=== PATIENT | female | born 1995 | race American Indian/Alaskan Native ===

== ENCOUNTER 2018-12-08 16:20 | Emergency (ER) | payer MEDICAID ==
--- NOTE | 2018-12-08 16:34 | Emergency Department Report ---
Blank Doc - Documentation Documentation: This is a 23-year-old female that presents with nausea vomiting diarrhea. This initial assessment/diagnostic orders/clinical plan/treatment(s) is/are subject to change based on patient's health status, clinical progression and re- assessment by fellow clinical providers in the ED. Further treatment and workup at subsequent clinical providers discretion. Patient/guardians urged not to elope from the ED as their condition may be serious if not clinically assessed and managed. Initial orders include: 1- Patient sent to [facility] for further evaluation and treatment 2- labs 3- UA
[2018-12-08 17:35] LABS: Basophils % (Auto) 0.5 % (0.0-1.8); Eosinophils # (Auto) 0.1 K/mm3 (0.0-0.4); Eosinophils % (Auto) 1.6 % (0.0-4.3); Hematocrit 38.3 % (30.3-42.9); Hemoglobin 13.1 gm/dl (10.1-14.3); Lymphocytes # (Auto) 1.7 K/mm3 (1.2-5.4); Lymphocytes % (Auto) 24.2 % (13.4-35.0); Mean Corpuscular HGB Conc 34 % (30-34); Mean Corpuscular Volume 81 fl (79-97); Monocytes # (Auto) 0.6 K/mm3 (0.0-0.8); Monocytes % (Auto) 8.2 % (0.0-7.3); Platelet Count 241 K/mm3 (140-440); Red Blood Count 4.75 M/mm3 (3.65-5.03); Red Cell Distribution Width 14.2 % (13.2-15.2)
[2018-12-08 17:46] LABS: Bacteria,Urine 1+ /HPF (Negative); Bilirubin,Urine NEG (Negative); Blood,Urine SM (Negative); Color,Urine Yellow (Yellow); Protein,Urine <15 mg/dL mg/dL (Negative)
[2018-12-08 18:00] LABS: Alanine Aminotransferase 32 units/L (7-56); Albumin 4.4 g/dL (3.9-5); BUN/Creatinine Ratio 7; Blood Urea Nitrogen 4 mg/dL (7-17); Calcium 9.9 mg/dL (8.4-10.2); Hemolysis Index 4
[2018-12-08] MEDS ORDERED: NACL 0.9% 1000 ML 1,000 ML IV ONE (19:51)
[2018-12-08] MEDS ORDERED: ZOFRAN IV ONE (19:51)
--- NOTE | 2018-12-08 19:51 | Emergency Department Report ---
Vomiting/Diarrhea - HPI Chief Complaint: Nausea/Vomiting/Diarrhea Stated Complaint: VOMIT/NAUSEA/POSS Time Seen by Provider: 12/08/18 16:33 Pain Severity: Mild Symptoms: Yes Able to Tolerate Fluids, No Watery Diarrhea, No Bloody diarrhea, No Fever, No Recent Unusual Foods, No Recent Untreated Water, No Recent use of Antibiotics, No Family w/ Similar Symptoms, No Contacts w/ Similar Symptoms, No Rash, No Hematuria, No Recent URI Symptoms Other History: 23 Y OLD COMES TO ER CO ABD PAIN AND THINKING SHE IS PREG. NO HOME PREG TEST. G3. LMP 6.8. DID NOT SEE OBGYN. AMBULATORY. PLAYING ON PHONE DURING EXAM. REQUESTING ULTRASOUND. ED Review of Systems ROS: Stated complaint: VOMIT/NAUSEA/POSS Other details as noted in HPI Comment: All other systems reviewed and negative ED Past Medical Hx - Past Medical History Hx Asthma: Yes Additional medical history: Anxiety, preeclampsia x 2 pregnacies - Surgical History Past Surgical History?: No - Family History Family history: no significant - Social History Smoking Status: Never Smoker Substance Use Type: None - Medications Home Medications: Home Medications Medication Instructions Recorded Confirmed Last Taken Type Azithromycin [Zithromax Z-JONE] 250 mg PO DAILY #6 tablet 04/26/16 Unknown Rx Cetirizine HCl [ZyrTEC] 10 mg PO DAILY #30 capsule 04/26/16 Unknown Rx Fluticasone [Flonase] 1 spray NS QDAY #1 bottle 04/26/16 Unknown Rx Ibuprofen [Motrin 800 MG tab] 800 mg PO Q8HR PRN #30 tablet 04/26/16 Unknown Rx Ondansetron [Zofran Odt] 4 mg PO Q8HR PRN #10 tab.rapdis 12/08/18 Unknown Rx Promethazine HCl [Phenergan SUPPOS] 25 mg RC Q8H PRN 10 Days supp.rect 12/08/18 Unknown Rx Vomiting Diarrhea Exam - Exam General: Vital signs noted. No distress. Alert and acting appropriately. HEENT: No Pharyngeal Erythema Neck: No Adenopathy Lungs: Yes Clear Lung Sounds, Yes Good Air Exchange Heart exam: Regular: Yes, Murmur: No Abdomen: Tenderness: No, Peritoneal Signs: No, Distention: No, Hyperactive Bowel sounds: No Skin exam: Rash: No, Edema: No Neurologic: Alert and oriented, no deficits. Musculoskeletal: Unremarkable. ED Medical Decision Making - Lab Data Result diagrams: 12/08/18 17:17 12/08/18 17:17 - Radiology Data Radiology results: report reviewed, image reviewed - Medical Decision Making Lab Results 12/08/18 12/08/18 12/08/18 Range/Units 16:55 17:17 17:17 WBC 6.9 (4.5-11.0) K/mm3 RBC 4.75 (3.65-5.03) M/mm3 Hgb 13.1 (10.1-14.3) gm/dl Hct 38.3 (30.3-42.9) % MCV 81 (79-97) fl MCH 28 (28-32) pg MCHC 34 (30-34) % RDW 14.2 (13.2-15.2) % Plt Count 241 (140-440) K/mm3 Lymph % (Auto) 24.2 (13.4-35.0) % [place] % (Auto) 8.2 H (0.0-7.3) % Eos % (Auto) 1.6 (0.0-4.3) % Baso % (Auto) 0.5 (0.0-1.8) % Lymph # 1.7 (1.2-5.4) K/mm3 [place] # 0.6 (0.0-0.8) K/mm3 Eos # 0.1 (0.0-0.4) K/mm3 Baso # 0.0 (0.0-0.1) K/mm3 Seg Neutrophils % 65.5 (40.0-70.0) % Seg Neutrophils # 4.5 (1.8-7.7) K/mm3 Sodium 138 (137-145) mmol/L Potassium 3.9 (3.6-5.0) mmol/L Chloride 102.6 (98-107) mmol/L Carbon Dioxide 21 L (22-30) mmol/L Anion Gap 18 mmol/L BUN 4 L (7-17) mg/dL Creatinine 0.6 L (0.7-1.2) mg/dL Estimated GFR > 60 ml/min BUN/Creatinine Ratio 7 % Glucose 94 (65-100) mg/dL Calcium 9.9 (8.4-10.2) mg/dL Total Bilirubin 0.60 (0.1-1.2) mg/dL AST 24 (5-40) units/L ALT 32 (7-56) units/L Alkaline Phosphatase 71 (35-129) units/L Total Protein 7.6 (6.3-8.2) g/dL Albumin 4.4 (3.9-5) g/dL Albumin/Globulin Ratio 1.4 % Lipase 16 (13-60) units/L HCG, Qual (Negative) HCG, Quant (0-4) mIU/mL Urine Color Yellow (Yellow) Urine Turbidity Clear (Clear) Urine pH 6.0 (5.0-7.0) Ur Specific [place] 1.015 (1.003-1.030) Urine Protein <15 mg/dl (Negative) mg/dL Urine Glucose (UA) Neg (Negative) mg/dL Urine Ketones 20 (Negative) mg/dL Urine Blood Sm (Negative) Urine Nitrite Neg (Negative) Urine Bilirubin Neg (Negative) Urine Urobilinogen 4.0 (<2.0) mg/dL Ur Leukocyte Esterase Sm (Negative) Urine WBC (Auto) 7.0 H (0.0-6.0) /HPF Urine RBC (Auto) 3.0 (0.0-6.0) /HPF U Epithel Cells (Auto) 5.0 (0-13.0) /HPF Urine Bacteria (Auto) 1+ (Negative) /HPF Urine Yeast (Budding) Few /HPF 12/08/18 12/08/18 Range/Units 17:17 20:19 WBC (4.5-11.0) K/mm3 RBC (3.65-5.03) M/mm3 Hgb (10.1-14.3) gm/dl Hct (30.3-42.9) % MCV (79-97) fl MCH (28-32) pg MCHC (30-34) % RDW (13.2-15.2) % Plt Count (140-440) K/mm3 Lymph % (Auto) (13.4-35.0) % [place] % (Auto) (0.0-7.3) % Eos % (Auto) (0.0-4.3) % Baso % (Auto) (0.0-1.8) % Lymph # (1.2-5.4) K/mm3 [place] # (0.0-0.8) K/mm3 Eos # (0.0-0.4) K/mm3 Baso # (0.0-0.1) K/mm3 Seg Neutrophils % (40.0-70.0) % Seg Neutrophils # (1.8-7.7) K/mm3 Sodium (137-145) mmol/L Potassium (3.6-5.0) mmol/L Chloride (98-107) mmol/L Carbon Dioxide (22-30) mmol/L Anion Gap mmol/L BUN (7-17) mg/dL Creatinine (0.7-1.2) mg/dL Estimated GFR ml/min BUN/Creatinine Ratio % Glucose (65-100) mg/dL Calcium (8.4-10.2) mg/dL Total Bilirubin (0.1-1.2) mg/dL AST (5-40) units/L ALT (7-56) units/L Alkaline Phosphatase (35-129) units/L Total Protein (6.3-8.2) g/dL Albumin (3.9-5) g/dL Albumin/Globulin Ratio % Lipase (13-60) units/L HCG, Qual Positive (Negative) HCG, Quant 44045 H (0-4) mIU/mL Urine Color (Yellow) Urine Turbidity (Clear) Urine pH (5.0-7.0) Ur Specific [place] (1.003-1.030) Urine Protein (Negative) mg/dL Urine Glucose (UA) (Negative) mg/dL Urine Ketones (Negative) mg/dL Urine Blood (Negative) Urine Nitrite (Negative) Urine Bilirubin (Negative) Urine Urobilinogen (<2.0) mg/dL Ur Leukocyte Esterase (Negative) Urine WBC (Auto) (0.0-6.0) /HPF Urine RBC (Auto) (0.0-6.0) /HPF U Epithel Cells (Auto) (0-13.0) /HPF Urine Bacteria (Auto) (Negative) /HPF Urine Yeast (Budding) /HPF Vital Signs 12/08/18 21:10 Temperature 99.1 F Pulse Rate 75 Respiratory 18 Rate Blood Pressure 118/64 [Left] O2 Sat by Pulse 100 Oximetry PREG POS NO VAG BLEED USUAL DISCHARGE ABD SOFT NON TENDER NO CVA TENDERNESS VSS US NOTED DC HOME WITH OBGYN FOLLOW UP. - Differential Diagnosis RO Critical care attestation.: If time is entered above; I have spent that time in minutes in the direct care of this critically ill patient, excluding procedure time. ED Disposition Clinical Impression: Disposition: DC-01 TO HOME OR SELFCARE Is pt being admited?: No Does the pt Need Aspirin: No Condition: Stable Instructions: Morning Sickness (ED), (ED) Additional Instructions: vitamin follow up with tobias saucedo hydrate well avoid drugs or alcohol Prescriptions: Promethazine HCl [Phenergan SUPPOS] 25 mg RC Q8H PRN 10 Days supp.rect PRN Reason: Nausea Ondansetron [Zofran Odt] 4 mg PO Q8HR PRN #10 tab.rapdis PRN Reason: Vomiting Referrals: NEERU WOOD MD [Primary Care Provider] - 3-5 Days ANDIE SONI MD [Staff Physician] - 3-5 Days Time of Disposition: 22:46
[2018-12-08 21:11] VITALS: BP 118/64
[2018-12-08] MEDS ORDERED: PHENERGAN PR ONE (22:54)
--- NOTE | 2018-12-08 23:08 | Ultrasound Report ---
ULTRASOUND OBSTETRIC INDICATION: Abdominal pain. Clinical gestational age of 6 weeks, 2 days. TECHNIQUE: Transabdominal and Transvaginal. COMPARISON: None available. FINDINGS: GESTATIONAL SACS: Well-defined oval shape and intrauterine in location. YOLK SACS: No significant abnormality. EMBRYOS/FETUSES: No significant abnormality. - [place]-Rump Length Twin A = 0.69 cm = 6 weeks, 4 day(s). - Heart Rate Twin A = 120 beats per minute. - [place]-Rump Length Twin B = 0.66 cm = 6 weeks, 4 day(s). - Heart Rate Twin B = 121 beats per minute. ADNEXA: A 2.2 cm complex hypoechoic structure is seen within the right ovary, possibly representing a n evolving corpus luteum. No additional significant abnormality. FREE FLUID: None. ADDITIONAL FINDINGS: None. IMPRESSION: 1. Living twin intrauterine with estimated sonographic age of 6 weeks, 4 day(s). 2. No acute sonographic abnormality of the pelvis. Signer Name: Bay Warren MD Signed: 12/08/2018 11:03 PM Workstation Name: [id number]
--- NOTE | 2018-12-08 23:08 | Ultrasound Report ---
ULTRASOUND OBSTETRIC INDICATION: Abdominal pain. Clinical gestational age of 6 weeks, 2 days. TECHNIQUE: Transabdominal and Transvaginal. COMPARISON: None available. FINDINGS: GESTATIONAL SACS: Well-defined oval shape and intrauterine in location. YOLK SACS: No significant abnormality. EMBRYOS/FETUSES: No significant abnormality. - [place]-Rump Length Twin A = 0.69 cm = 6 weeks, 4 day(s). - Heart Rate Twin A = 120 beats per minute. - [place]-Rump Length Twin B = 0.66 cm = 6 weeks, 4 day(s). - Heart Rate Twin B = 121 beats per minute. ADNEXA: A 2.2 cm complex hypoechoic structure is seen within the right ovary, possibly representing a n evolving corpus luteum. No additional significant abnormality. FREE FLUID: None. ADDITIONAL FINDINGS: None. IMPRESSION: 1. Living twin intrauterine with estimated sonographic age of 6 weeks, 4 day(s). 2. No acute sonographic abnormality of the pelvis. Signer Name: Bay Warren MD Signed: 12/08/2018 11:03 PM Workstation Name: [id number]
--- NOTE | 2018-12-11 07:29 | Ultrasound Report ---
Please see the report for accession number [id number], pelvic ultrasound performed concomitantly on 0 12/08/2018. Signer Name: Bay Warren MD Signed: 12/11/2018 7:25 AM Workstation Name: [email or web address]
== END 2018-12-08 23:10 | disposition home or self-care (01) ==
LOC: ED 16:20
DX: O21.9 Vomiting of pregnancy, unspecified (principal); O26.891 Other specified pregnancy related conditions, first trimester; R11.0 Nausea; O99.511 Diseases of the respiratory system complicating pregnancy, first trimester; J45.909 Unspecified asthma, uncomplicated; O99.341 Other mental disorders complicating pregnancy, first trimester; F41.9 Anxiety disorder, unspecified; Z79.899 Other long term (current) drug therapy; Z3A.00 Weeks of gestation of pregnancy not specified
CPT/HCPCS: 36415; 76801; 76802; 76817; 80053; 81001; 83690; 84702; 84703; 85025; 96361; 96374; 99284; J2405; J7030

== ENCOUNTER 2020-09-06 15:43 | Emergency (ER) | payer MEDICAID ==
--- NOTE | 2020-09-06 15:49 | Event Note ---
ED Screening Note ED Screening Note: Patient is a 25-year-old -Monegas[place] female that comes to the ER complaining of right calf pain. She saw her doctor 3 days ago and they did blood work and EKGs and everything was fine. But they did nothing about her leg. She denies any trauma. She states it is a constant throbbing. Patient is on no medications and reports being otherwise healthy. On further exam and probing patient states that she did have a history of blood clots after having her . This initial assessment/diagnostic orders/clinical plan/treatment(s) is/are subject to change based on patients health status, clinical progression and re- assessment by fellow clinical providers in the ED. Further treatment and workup at subsequent clinical providers discretion. Patient/guardian urged not to elope from the ED as their condition may be serious if not clinically assessed and managed. Initial orders include: us ro dvt
--- NOTE | 2020-09-06 16:35 | Vascular Lab Report ---
VL venous duplex LE RT INDICATION / CLINICAL INFORMATION: calf pain ro dvt; hx dvt. TECHNIQUE: Duplex doppler imaging was performed using venous compression and other maneuvers. COMPARISON: None available. FINDINGS: No venous thrombosis is identified within the visualized extremity vasculature. ADDITIONAL FINDINGS: None. IMPRESSION: 1. No sonographic evidence for DVT in the visualized right lower extremity vasculature. Signer Name: Yunior Rose MD Signed: 09/06/2020 4:30 PM Workstation Name: [id number]
[2020-09-06] MEDS ORDERED: hydrOXYzine HCL 25 MG TAB PO ONE (17:31)
[2020-09-06 17:32] VITALS: BP 134/81
--- NOTE | 2020-09-06 17:40 | Emergency Department Report ---
ED General Adult HPI - General Chief complaint: Chest Pain Stated complaint: CHEST DISCOMFORT, RIGHT LEG PAIN Time Seen by Provider: 09/06/20 15:48 Source: patient Mode of arrival: Ambulatory Limitations: No Limitations - History of Present Illness Initial comments: Patient is a 25-year-old female who presents emergency room with complaints of right calf pain and anxiety. Patient has a history of anxiety but states it has worsened over the last month. She states that she has had the right calf pain for 3 days. She denies any fall or injury. She denies any leg swelling. She denies any recent travel, surgery, immobilization, hormone use. She has no past medical history of DVT or PE. Patient states that her anxiety has worsened over the last month and she has intermittent symptoms of chest pressure, shortness of breath, lightheadedness. Patient states that she went to [facility] 3 days ago and had lab work, EKG, chest x-ray which she states were all normal. She states that she was started on medication for GERD. Past medical history of preeclampsia during her , otherwise no history of hypertension. No allergies to medications. - Related Data Previous Rx's Medication Instructions Recorded Last Taken Type Azithromycin [Zithromax Z-JONE] 250 mg PO DAILY #6 tablet 04/26/16 Unknown Rx Cetirizine HCl [ZyrTEC] 10 mg PO DAILY #30 capsule 04/26/16 Unknown Rx Fluticasone [Flonase] 1 spray NS QDAY #1 bottle 04/26/16 Unknown Rx Ibuprofen [Motrin 800 MG tab] 800 mg PO Q8HR PRN #30 tablet 04/26/16 Unknown Rx Ondansetron [Zofran Odt] 4 mg PO Q8HR PRN #10 tab.rapdis 12/08/18 Unknown Rx Promethazine HCl [Phenergan SUPPOS] 25 mg RC Q8H PRN 10 Days supp.rect 12/08/18 Unknown Rx Allergies Allergy/AdvReac Type Severity Reaction Status Date / Time shellfish derived AdvReac Unknown Verified 09/06/20 15:50 ED Review of Systems ROS: Stated complaint: CHEST DISCOMFORT, RIGHT LEG PAIN Other details as noted in HPI Comment: All other systems reviewed and negative ED Past Medical Hx - Past Medical History Hx Asthma: Yes Additional medical history: Anxiety, preeclampsia x 2 pregnacies, blood clots post - Social History Smoking Status: Never Smoker Substance Use Type: None - Medications Home Medications: Home Medications Medication Instructions Recorded Confirmed Last Taken Type Azithromycin [Zithromax Z-JONE] 250 mg PO DAILY #6 tablet 04/26/16 Unknown Rx Cetirizine HCl [ZyrTEC] 10 mg PO DAILY #30 capsule 04/26/16 Unknown Rx Fluticasone [Flonase] 1 spray NS QDAY #1 bottle 04/26/16 Unknown Rx Ibuprofen [Motrin 800 MG tab] 800 mg PO Q8HR PRN #30 tablet 04/26/16 Unknown Rx Ondansetron [Zofran Odt] 4 mg PO Q8HR PRN #10 tab.rapdis 12/08/18 Unknown Rx Promethazine HCl [Phenergan SUPPOS] 25 mg RC Q8H PRN 10 Days supp.rect 12/08/18 Unknown Rx ED Physical Exam - General Limitations: No Limitations General appearance: alert, in no apparent distress - Head Head exam: Present: atraumatic, normocephalic - Eye Eye exam: Present: normal appearance - ENT ENT exam: Present: mucous membranes moist - Respiratory Respiratory exam: Present: normal lung sounds bilaterally. Absent: respiratory distress, wheezes, rales, rhonchi, stridor, chest wall tenderness, accessory muscle use, decreased breath sounds, prolonged expiratory - Cardiovascular Cardiovascular Exam: Present: regular rate, normal rhythm, normal heart sounds. Absent: systolic murmur, diastolic murmur, rubs, gallop - Extremities Exam Extremities exam: Present: normal inspection, full ROM, normal capillary refill, other (no calf ttp, no bony ttp of the RLE, no edema, neurovascularly intact). Absent: tenderness, pedal edema, joint swelling, calf tenderness - Neurological Exam Neurological exam: Present: alert, oriented X3 - Psychiatric Psychiatric exam: Present: normal affect, normal mood - Skin Skin exam: Present: warm, dry, intact ED Course Vital Signs 09/06/20 09/06/20 15:47 17:29 Temperature 98.1 F Pulse Rate 109 H 80 Respiratory 20 20 Rate Blood Pressure 182/122 134/81 O2 Sat by Pulse 100 100 Oximetry ED Medical Decision Making - Lab Data Vital Signs 09/06/20 09/06/20 15:47 17:29 Temperature 98.1 F Pulse Rate 109 H 80 Respiratory 20 20 Rate Blood Pressure 182/122 134/81 O2 Sat by Pulse 100 100 Oximetry - EKG Data EKG shows normal: sinus rhythm, axis, intervals, QRS complexes, ST-T waves Rate: normal - Radiology Data Radiology results: report reviewed Ordering Physician: MIGUEL AIKEN Date of Service: 09/06/20 Procedure(s): VL venous duplex LE RT Accession Number(s): [id number] cc: MIGUEL AIKEN VL venous duplex LE RT INDICATION / CLINICAL INFORMATION: calf pain ro dvt; hx dvt. TECHNIQUE: Duplex doppler imaging was performed using venous compression and other maneuvers. COMPARISON: None available. FINDINGS: No venous thrombosis is identified within the visualized extremity vasculature. ADDITIONAL FINDINGS: None. IMPRESSION: 1. No sonographic evidence for DVT in the visualized right lower extremity vasculature. Signer Name: Yunior Rose MD Signed: 09/06/2020 4:30 PM Workstation Name: [id number] Transcribed By: CS Dictated By: Yunior Rose MD Electronically Authenticated By: Yunior Rose MD Signed Date/Time: 09/06/201629 DD/ 29 TD/TT: - Medical Decision Making Patient is a 25-year-old female who presents emergency room with complaints of right calf pain and anxiety. Patient has a history of anxiety but states it has worsened over the last month. She states that she has had the right calf pain for 3 days. She denies any fall or injury. She denies any leg swelling. She denies any recent travel, surgery, immobilization, hormone use. She has no past medical history of DVT or PE. Patient states that her anxiety has worsened over the last month and she has intermittent symptoms of chest pressure, shortness of breath, lightheadedness. Patient states that she went to [facility] 3 days ago and had lab work, EKG, chest x-ray which she states were all normal. She states that she was started on medication for GERD. Past medical history of preeclampsia during her , otherwise no history of hypertension. No allergies to medications. Initial vitals with elevated heart rate and blood pressure which improved to normal upon repeat. No abnormality on physical exam as documented in chart. EKG is within normal limits. Doppler ultrasound ordered prior to my examination and shows no signs of DVT. Patient is low risk based on Wells criteria for PE, PE unlikely. Patient given hydroxyzine and symptoms improved. It appears patient symptoms are likely anxiety related. Patient be given primary care follow-up and information to the [facility]. Advised patient Please increase your water intake. Take a daily woman's vitamin [id number]. Please practice healthy coping mechanisms for your anxiety such as meditation, taking walks, watching videos, etc. Follow-up with the [facility] regarding your anxiety. Follow-up with your primary care doctor. Return to emergency room for new or worsening symptoms. Critical care attestation.: If time is entered above; I have spent that time in minutes in the direct care of this critically ill patient, excluding procedure time. ED Disposition Clinical Impression: Right calf pain, Anxiety Disposition: DC-01 TO HOME OR SELFCARE Is pt being admited?: No Does the pt Need Aspirin: No Condition: Stable Instructions: Managing Anxiety, Adult, Leg Cramps Additional Instructions: Please increase your water intake. Take a daily woman's vitamin [id number]. Please practice healthy coping mechanisms for your anxiety such as meditation, taking walks, watching videos, etc. Follow-up with the [facility] regarding your anxiety. Follow-up with your primary care doctor. Return to emergency room for new or worsening symptoms. Referrals: [facility] [Outside] - 2-3 Days your, primary care doctor [Other] - 2-3 Days Forms: Work/School Release Form(ED) Time of Disposition: 17:39 Print Language: INDONESIAN
--- NOTE | 2020-09-08 09:33 | Electrocardiograph Report ---
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
== END 2020-09-06 18:15 | disposition home or self-care (01) ==
LOC: ED 15:43
DX: F41.9 Anxiety disorder, unspecified (principal); M79.661 Pain in right lower leg; J45.909 Unspecified asthma, uncomplicated; Z79.899 Other long term (current) drug therapy; Z91.013 Allergy to seafood
CPT/HCPCS: 93005

== ENCOUNTER 2021-09-22 22:26 | Emergency (ER) | payer MEDICAID ==
[2021-09-23 02:32] LABS: Hematocrit 29.7 % (30.3-42.9); Hemoglobin 9.1 gm/dl (10.1-14.3); Mean Corpuscular HGB Conc 31 % (30-34); Platelet Count 378 K/mm3 (140-440); Red Blood Count 4.82 M/mm3 (3.65-5.03)
[2021-09-23 02:34] LABS: Bacteria,Urine 1+ /HPF (Negative); Bilirubin,Urine NEG (Negative); Blood,Urine LG (Negative); Color,Urine Yellow (Yellow); Mucus,Urine FEW /HPF; Protein,Urine <15 mg/dL mg/dL (Negative); Urobilinogen,Urine < 2.0 mg/dL (<2.0)
[2021-09-23 02:38] LABS: Mean Corpuscular Volume 62 fl (79-97)
[2021-09-23 02:44] LABS: Red Cell Distribution Width 21.1 % (13.2-15.2)
[2021-09-23 02:49] LABS: Alanine Aminotransferase 12 units/L (7-56); Albumin 4.6 g/dL (3.9-5); Blood Urea Nitrogen 7 mg/dL (7-17); Calcium 9.6 mg/dL (8.4-10.2); Hemolysis Index 1
[2021-09-23 03:16] LABS: BUN/Creatinine Ratio 10
[2021-09-23 03:20] VITALS: BP 126/73
--- NOTE | 2021-09-23 04:05 | XRay Report ---
CHEST 1 VIEW 09/23/2021 2:56 AM INDICATION / CLINICAL INFORMATION: CHEST PAIN. COMPARISON: 04/25/2016 FINDINGS: SUPPORT DEVICES: None. HEART / MEDIASTINUM: No significant abnormality. LUNGS / PLEURA: No significant pulmonary or pleural abnormality. No pneumothorax. ADDITIONAL FINDINGS: No significant additional findings. IMPRESSION: 1. No acute findings. Signer Name: Marco Felix DO Signed: 09/23/2021 4:00 AM Workstation Name: [id number]
[2021-09-23] MEDS ORDERED: KETOROLAC 30 MG/1 ML INJ IM ONE (04:15)
[2021-09-23] MEDS ORDERED: LIDOCAINE VISCOUS 2% 15 ML ORAL LIQD PO ONE (04:15)
[2021-09-23 04:25] LABS: Anisocytosis 1+; Basophils % (Manual) 0 % (0.0-1.8); Total Cells Counted 100
[2021-09-23 04:26] LABS: Platelet Estimate Consistent w Auto
--- NOTE | 2021-09-23 06:16 | Emergency Department Report ---
ED Chest Pain HPI - General Chief Complaint: Chest Pain Stated Complaint: CHEST WALL PAIN Source: patient, EMS Mode of arrival: Ambulatory Limitations: No Limitations - History of Present Illness Initial Comments: Patient is a 26-year-old -[place] female with a history of anxiety and asthma who presents to the ED with complaint of acute onset persistent diffuse chest pain that radiates to the mid posterior thoracic area intermittently for the last 5 days. Patient states that the pain is intermittent and worsens with activity, lifting or palpation of the chest wall and mid posterior thoracic area. Patient also complains of nasal and sinus congestion and frontal sinus pressure and was recently diagnosed with acute sinusitis and was prescribed for oral prednisone but she only took 2 days worth of medication and stopped because according to her the medicine was making her jittery. Patient also complains of painful ulcerated lesions in her lips, tongue and her throat with thick white discharge. Patient denies dizziness, syncope, fever, chills, cough, heavy lifting, nausea and vomiting and diarrhea, abdominal pain or fall and heavy lifting. MD Complaint: chest pain, other (Diffuse mid posterior thoracic pain; oral itchy painful ulceration) -: Sudden, days(s) (5) Onset: during exertion Pain Location: substernal, left chest, right chest Pain Radiation: back (Mid posterior thoracic area) Severity: moderate Severity scale (0 -10): 6 Quality: aching, sharp Consistency: intermittent Improves With: nothing Worsens With: exertion, palpation, movement re: denies: nausea, vomting, diaphoresis, dyspnea, sense of impending doom Other Symptoms: acid taste in mouth. denies: cough, fever, syncope, rash, leg swelling, palpitations, burping Treatments Prior to Arrival: none Aspirin use within the Past 7 Days: (0) No - Related Data On Oral Contraceptives: No Previous Rx's Medication Instructions Recorded Last Taken Type Azithromycin [Zithromax Z-JONE] 250 mg PO DAILY #6 tablet 04/26/16 Unknown Rx Cetirizine HCl [ZyrTEC] 10 mg PO DAILY #30 capsule 04/26/16 Unknown Rx Fluticasone [Flonase] 1 spray NS QDAY #1 bottle 04/26/16 Unknown Rx Ondansetron [Zofran Odt] 4 mg PO Q8HR PRN #10 tab.rapdis 12/08/18 Unknown Rx Promethazine HCl [Phenergan SUPPOS] 25 mg RC Q8H PRN 10 Days supp.rect 12/08/18 Unknown Rx Baclofen 20 mg PO Q12H PRN #24 tab 09/23/21 Unknown Rx Famotidine [Pepcid] 20 mg PO BID #60 tablet 09/23/21 Unknown Rx Ibuprofen [Motrin 800 MG tab] 800 mg PO Q8HR PRN #30 tablet 09/23/21 Unknown Rx Nystas/Diphen/Xyl Visc/Mylanta 15 ml PO Q8H PRN #450 ml 09/23/21 Unknown Rx [Magic Mouthwash] Allergies Allergy/AdvReac Type Severity Reaction Status Date / Time shellfish derived AdvReac Unknown Verified 09/06/20 15:50 Heart Score - HEART Score History: Slightly suspicious EKG: Normal Age: < 45 Risk factors: No known risk factors Troponin: < normal limit HEART Score: 0 - EKG Read Time Time EKG Completed: 04:59 EKG Read Time: 05:00 - Critical Actions Critical Actions: 0-3 pts:0.9-1.7%risk of adverse cardiac event.Candidate for discharge ED Review of Systems ROS: Stated complaint: CHEST WALL PAIN Other details as noted in HPI Constitutional: denies: chills, fever Eyes: denies: eye pain, eye discharge, vision change ENT: other (Painful oral ulcers). denies: ear pain, throat pain Respiratory: denies: cough, shortness of breath, wheezing Cardiovascular: chest pain (Diffuse chest pain). denies: palpitations Endocrine: no symptoms reported Gastrointestinal: denies: abdominal pain, nausea, vomiting, diarrhea Genitourinary: denies: urgency, dysuria, discharge Musculoskeletal: back pain (Mid posterior thoracic pain). denies: joint swelling, arthralgia Skin: denies: rash, lesions Neurological: denies: headache, weakness, paresthesias Psychiatric: denies: anxiety, depression Hematological/Lymphatic: denies: easy bleeding, easy bruising ED Past Medical Hx - Past Medical History Previous Medical History?: Yes Hx Asthma: Yes Additional medical history: Anxiety, preeclampsia x 2 pregnacies, blood clots post - Surgical History Past Surgical History?: No - Social History Smoking Status: Never Smoker Substance Use Type: None - Medications Home Medications: Home Medications Medication Instructions Recorded Confirmed Last Taken Type Azithromycin [Zithromax Z-JONE] 250 mg PO DAILY #6 tablet 04/26/16 Unknown Rx Cetirizine HCl [ZyrTEC] 10 mg PO DAILY #30 capsule 04/26/16 Unknown Rx Fluticasone [Flonase] 1 spray NS QDAY #1 bottle 04/26/16 Unknown Rx Ondansetron [Zofran Odt] 4 mg PO Q8HR PRN #10 tab.rapdis 12/08/18 Unknown Rx Promethazine HCl [Phenergan SUPPOS] 25 mg RC Q8H PRN 10 Days supp.rect 12/08/18 Unknown Rx Baclofen 20 mg PO Q12H PRN #24 tab 09/23/21 Unknown Rx Famotidine [Pepcid] 20 mg PO BID #60 tablet 09/23/21 Unknown Rx Ibuprofen [Motrin 800 MG tab] 800 mg PO Q8HR PRN #30 tablet 09/23/21 Unknown Rx Nystas/Diphen/Xyl Visc/Mylanta 15 ml PO Q8H PRN #450 ml 09/23/21 Unknown Rx [Magic Mouthwash] ED Physical Exam - General Limitations: No Limitations General appearance: alert, in no apparent distress - Head Head exam: Present: atraumatic, normocephalic, normal inspection - Eye Eye exam: Present: normal appearance, PERRL, EOMI Pupils: Present: normal accommodation - ENT ENT exam: Present: normal exam, mucous membranes moist, TM's normal bilaterally, other (Mild erythematous ulcerated intraoral lesions on the tongue, on the inner lips and on the throat with white discharge) - Neck Neck exam: Present: normal inspection, full ROM. Absent: tenderness - Respiratory Respiratory exam: Present: normal lung sounds bilaterally. Absent: respiratory distress, wheezes, rales, chest wall tenderness, accessory muscle use, prolonged expiratory - Cardiovascular Cardiovascular Exam: Present: regular rate, normal rhythm, normal heart sounds. Absent: systolic murmur, diastolic murmur, rubs, gallop - GI/Abdominal GI/Abdominal exam: Present: soft, normal bowel sounds. Absent: tenderness, guarding, rebound, hyperactive bowel sounds, hypoactive bowel sounds, mass - Extremities Exam Extremities exam: Present: normal inspection, full ROM, normal capillary refill. Absent: tenderness, pedal edema, joint swelling, calf tenderness - Back Exam Back exam: Present: normal inspection, full ROM. Absent: tenderness, CVA tenderness (R), CVA tenderness (L), muscle spasm, paraspinal tenderness, vertebral tenderness - Neurological Exam Neurological exam: Present: alert, oriented X3, CN II-XII intact, normal gait, reflexes normal - Psychiatric Psychiatric exam: Present: normal affect, normal mood - Skin Skin exam: Present: warm, dry, intact, normal color. Absent: rash ED Course Vital Signs 09/22/21 09/23/21 09/23/21 23:05 03:19 05:37 Temperature 97.7 F Pulse Rate 82 80 Respiratory 18 16 Rate Blood Pressure 122/58 126/73 [Right] O2 Sat by Pulse 99 98 98 Oximetry KAVON score - Kavon Score Age > 65: (0) No Aspirin use within the Past 7 Days: (0) No 3 or more CAD Risk Factors: (0) No 2 or more Angina events in past 24 hrs: (0) No Known CAD with more than 50% Stenosis: (0) No Elevated Cardiac Markers: (0) No ST Deviation Greater than 0.5mm: (0) No KAVON Score: 0 ED Medical Decision Making - Lab Data Result diagrams: 09/23/21 01:32 09/23/21 01:32 - EKG Data EKG shows normal: sinus rhythm Rate: normal - EKG Data Interpretation: normal EKG 09/23/21 06:21 The EKG shows normal sinus rhythm with a ventricular rate of [address] or T wave abnormalities. - Radiology Data Radiology results: report reviewed, image reviewed [address] [address] XRay Report Signed Patient: ANUPAMA PARKER MR# : [id number] : 1995 Acct:[id number] Age/Sex: 26 / F ADM Date: 09/22/21 Loc: ED Attending Dr: Ordering Physician: KETAN JIMENEZ Date of Service: 09/23/21 Procedure(s): XR chest 1V ap Accession Number(s): [id number] cc: KETAN JIMENEZ Fluoro Time In Minutes: CHEST 1 VIEW 09/23/2021 2:56 AM INDICATION / CLINICAL INFORMATION: CHEST PAIN. COMPARISON: 04/25/2016 FINDINGS: SUPPORT DEVICES: None. HEART / MEDIASTINUM: No significant abnormality. LUNGS / PLEURA: No significant pulmonary or pleural abnormality. No pneumothorax. ADDITIONAL FINDINGS: No significant additional findings. IMPRESSION: 1. No acute findings. Signer Name: Marco Felix DO Signed: 09/23/2021 4:00 AM Workstation Name: [id number] Transcribed By: FLOR Dictated By: MARCO FELIX DO Electronically Authenticated By: MARCO FELIX DO Signed Date/Time: 09/23/21399 DD/ 8 TD/TT: - Medical Decision Making This is a 26-year-old -[place] female with a history of anxiety and asthma who presents to the ED with complaint of acute onset persistent diffuse chest pain that radiates to the mid posterior thoracic area intermittently for the last 5 days. Patient states that the pain is intermittent and worsens with activity, lifting or palpation of the chest wall and mid posterior thoracic area. Patient also complains of nasal and sinus congestion and frontal sinus pressure and was recently diagnosed with acute sinusitis and was prescribed for oral prednisone but she only took 2 days worth of medication and stopped because according to her the medicine was making her jittery. Patient also complains of painful ulcerated lesions in her lips, tongue and her throat with thick white discharge. In the ED, patient is alert and oriented x3 and is not in any distress. EKG shows normal sinus rhythm with a ventricular rate of [address] or T wave abnormalities. Chest x-ray showed no acute cardiopulmonary abnormalities or pneumonitis. Lab test results were reviewed and are all nonactionable except for chronic microcytic iron deficiency anemia as evidenced with H&H of 9.1 and 29.7 with MCV of 62. Patient was treated for pain in the ED. Patient heart score is 0 and patient is PERC negative per Wells criteria. Based on the history and physical exam findings as well as lab test results, the patient was discharged home on anti-inflammatory pain medications and also given antifungal oral medications to swish and swallow at home due to suspected Riddhi pharyngitis. Patient was discharged home and advised to follow-up with her primary care physician in 7 to 10 days for reevaluation or return to the ED immediately if symptoms get worse. - Differential Diagnosis Riddhi pharyngitis; oral ulcers; ACS; PE; pneumonia; muscle strain; anxiet Critical care attestation.: If time is entered above; I have spent that time in minutes in the direct care of this critically ill patient, excluding procedure time. ED Disposition Clinical Impression: Nonspecific chest pain, Acute costochondritis, Riddhi laryngitis, Acute upper respiratory infection, Strain of muscle and tendon of back wall of thorax, initial encounter GERD (gastroesophageal reflux disease) Qualifiers: Esophagitis presence: esophagitis presence not specified Qualified Code(s): K21.9 - Gastro-esophageal reflux disease without esophagitis Disposition: HOME / SELF CARE / HOMELESS Is pt being admited?: No Does the pt Need Aspirin: No Condition: Stable Instructions: Costochondritis, [id number], Nonspecific Chest Pain, Adult, Asut-lj-Ssvy, Muscle Strain, Ahcb-dj-Beqv, Chest Wall Pain, Njlv-ud-[id number], Thoracic Strain Rehab-SportsMed, Thrush and , Gastroesophageal Reflux Disease, Adult, [id number] Additional Instructions: Take medication with food, drink plenty of fluids and follow-up with your primary care physician in 7 to 10 days for reevaluation. Return to the ED i mmediately if symptoms get worse. Prescriptions: Baclofen 20 mg PO Q12H PRN #24 tab PRN Reason: Muscle Spasm Nystas/Diphen/Xyl Visc/Mylanta [Magic Mouthwash] 15 ml PO Q8H PRN #450 ml PRN Reason: Sore Throat Ibuprofen [Motrin 800 MG tab] 800 mg PO Q8HR PRN #30 tablet PRN Reason: Pain Famotidine [Pepcid] 20 mg PO BID #60 tablet Referrals: [facility] [Provider Group] - 3-5 Days Time of Disposition: 06:26 Print Language: CZECH
--- NOTE | 2021-09-23 09:48 | Electrocardiograph Report ---
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
== END 2021-09-23 07:11 | disposition home or self-care (01) ==
LOC: ED 22:26
DX: S29.012A Strain of muscle and tendon of back wall of thorax, initial encounter (principal); M94.0 Chondrocostal junction syndrome [Tietze]; J06.9 Acute upper respiratory infection, unspecified; B37.0 Candidal stomatitis; K21.9 Gastro-esophageal reflux disease without esophagitis; J45.909 Unspecified asthma, uncomplicated; Z91.013 Allergy to seafood; Z79.899 Other long term (current) drug therapy; X58.XXXA Exposure to other specified factors, initial encounter; Y93.89 Activity, other specified; Y92.89 Other specified places as the place of occurrence of the external cause; Y99.8 Other external cause status
CPT/HCPCS: 36415; 71045; 80053; 81001; 84484; 84703; 85007; 85025; 93005; 96372; 99284; J1885

== ENCOUNTER 2021-12-07 09:24 | Emergency (ER) | payer MEDICAID ==
--- NOTE | 2021-12-07 11:21 | Emergency Department Report ---
Blank Doc - Documentation Documentation: 26-year-old female presents with dizziness, right-sided abdominal pain with ti ngling sensation to the right side. Patient stated she is currently on her menstrual cycle. 1- This is a initial triage assessment/medical screening only. Full assessment and work-up will be completed once the patient is in proper hospital gown, ED bed and in a private room setting. This initial assessment/diagnostic orders/clinical plan/ treatment(s) is/are subject to change based on pt's health status, clinical progression and re-assessment by fellow clinical providers in the ED. Further treatment and workup at subsequent clinical providers discretion. Patient/guardians urged not to elope from ED as their condition may be serious if not clinically assessed and managed. 2-neurological exams are remarkable. No signs of one-sided weakness. Exam does not show strokelike symptoms. 3-labs The patient was evaluated in the emergency department for symptoms described in the history of present illness. He/she was evaluated in the context of the global COVID-19 pandemic, which necessitated consideration that the patient might be at risk for infection with the virus that causes COVID-19. Institutional protocols and algorithms that pertain to the evaluation of patients at risk for COVID-19 are in a state of rapid change based on information released by regulatory bodies including the CDC and federal and state organizations. These policies and algorithms were followed during the patient's care in the emergency department. Please note that these policies, procedures and recommendations changed on a rapid basis.
[2021-12-07] MEDS ORDERED: CYCLOBENZAPRINE 10 MG TAB PO ONE (12:43)
[2021-12-07] MEDS ORDERED: KETOROLAC 10 MG TAB PO ONE (12:43)
[2021-12-07] MEDS ORDERED: predniSONE 20 MG TAB PO ONE (12:43)
--- NOTE | 2021-12-07 12:43 | Emergency Department Report ---
ED Abdominal Pain HPI - General Chief Complaint: Abdominal Pain Stated Complaint: R ARM AND LEG PAIN AND ABD PAIN FOR 15 DAYS Time Seen by Provider: 12/07/21 11:19 Source: patient Mode of arrival: Ambulatory Limitations: No Limitations - History of Present Illness Initial Comments: 26-year-old black female with a past medical history of asthma and anxiety presents to the emergency department for evaluation of 16-day history of right arm and leg pain and heaviness. She states that she has pain to the her posterior thigh and calf area and the back of her arm that is associated with some chest pain and abdominal discomfort. She states that pain is 10 out of 10 and has been persistent. She denies fever but states that she has had some shortness of breath and a nonproductive cough. She also endorses that she has had some pain to her right lower back and her right neck area along with intermittent numbness and tingling to her right toes and fingers. She states that she was seen at [facility] twice for same symptoms and the last time she was there, she was given a steroid shot that improved symptoms significantly for 2 days. MD Complaint: abdominal pain -: Gradual, days(s) (16) Location: diffuse Radiation: none Migration to: no migration Severity: severe Severity scale (0 -10): 10 Quality: aching Consistency: intermittent Associated Symptoms: denies: nausea, vomiting, diarrhea, fever, chills, constipation, dysuria, hematemesis, hematochezia, melena, hematuria, anorexia, syncope - Related Data LMP Date: 12/07/21 Previous Rx's Medication Instructions Recorded Last Taken Type Azithromycin [Zithromax Z-JONE] 250 mg PO DAILY #6 tablet 04/26/16 Unknown Rx Cetirizine HCl [ZyrTEC] 10 mg PO DAILY #30 capsule 04/26/16 Unknown Rx Fluticasone [Flonase] 1 spray NS QDAY #1 bottle 04/26/16 Unknown Rx Ondansetron [Zofran Odt] 4 mg PO Q8HR PRN #10 tab.rapdis 12/08/18 Unknown Rx Promethazine HCl [Phenergan SUPPOS] 25 mg RC Q8H PRN 10 Days supp.rect 12/08/18 Unknown Rx Baclofen 20 mg PO Q12H PRN #24 tab 09/23/21 Unknown Rx Famotidine [Pepcid] 20 mg PO BID #60 tablet 09/23/21 Unknown Rx Ibuprofen [Motrin 800 MG tab] 800 mg PO Q8HR PRN #30 tablet 09/23/21 Unknown Rx Nystas/Diphen/Xyl Visc/Mylanta 15 ml PO Q8H PRN #450 ml 09/23/21 Unknown Rx [Magic Mouthwash] Cyclobenzaprine [Flexeril] 10 mg PO TID PRN #30 tab 12/07/21 Unknown Rx Naproxen [Naprosyn] 500 mg PO BID PRN #14 tab 12/07/21 Unknown Rx clonazePAM [ Klonopin] 0.5 mg PO BID PRN #12 tab 12/07/21 Unknown Rx methylPREDNISolone [Medrol 4MG 4 mg PO DAILY #1 pack 12/07/21 Unknown Rx DOSEPAK (21 tabs)] Allergies Allergy/AdvReac Type Severity Reaction Status Date / Time shellfish derived AdvReac Unknown Verified 12/07/21 09:45 ED Review of Systems ROS: Stated complaint: R ARM AND LEG PAIN AND ABD PAIN FOR 15 DAYS Other details as noted in HPI Comment: All other systems reviewed and negative Constitutional: weakness. denies: chills, diaphoresis, fever, malaise Eyes: denies: vision change ENT: denies: congestion Respiratory: denies: shortness of breath, SOB with exertion, SOB at rest Cardiovascular: chest pain. denies: palpitations, dyspnea on exertion, orthopnea, edema, syncope Gastrointestinal: denies: abdominal pain, nausea, vomiting, diarrhea, hematemesis, melena, hematochezia Genitourinary: denies: urgency, dysuria, frequency, hematuria, discharge Musculoskeletal: back pain Skin: denies: rash, lesions Neurological: weakness, numbness, paresthesias (Right toes and fingers intermittently). denies: headache, abnormal gait ED Past Medical Hx - Past Medical History Hx Asthma: Yes Additional medical history: Anxiety, preeclampsia x 2 pregnacies, blood clots post - Social History Smoking Status: Never Smoker Substance Use Type: None - Medications Home Medications: Home Medications Medication Instructions Recorded Confirmed Last Taken Type Azithromycin [Zithromax Z-JONE] 250 mg PO DAILY #6 tablet 04/26/16 Unknown Rx Cetirizine HCl [ZyrTEC] 10 mg PO DAILY #30 capsule 04/26/16 Unknown Rx Fluticasone [Flonase] 1 spray NS QDAY #1 bottle 04/26/16 Unknown Rx Ondansetron [Zofran Odt] 4 mg PO Q8HR PRN #10 tab.rapdis 12/08/18 Unknown Rx Promethazine HCl [Phenergan SUPPOS] 25 mg RC Q8H PRN 10 Days supp.rect 12/08/18 Unknown Rx Baclofen 20 mg PO Q12H PRN #24 tab 09/23/21 Unknown Rx Famotidine [Pepcid] 20 mg PO BID #60 tablet 09/23/21 Unknown Rx Ibuprofen [Motrin 800 MG tab] 800 mg PO Q8HR PRN #30 tablet 09/23/21 Unknown Rx Nystas/Diphen/Xyl Visc/Mylanta 15 ml PO Q8H PRN #450 ml 09/23/21 Unknown Rx [Magic Mouthwash] Cyclobenzaprine [Flexeril] 10 mg PO TID PRN #30 tab 12/07/21 Unknown Rx Naproxen [Naprosyn] 500 mg PO BID PRN #14 tab 12/07/21 Unknown Rx clonazePAM [ Klonopin] 0.5 mg PO BID PRN #12 tab 12/07/21 Unknown Rx methylPREDNISolone [Medrol 4MG 4 mg PO DAILY #1 pack 12/07/21 Unknown Rx DOSEPAK (21 tabs)] ED Physical Exam - General Limitations: No Limitations General appearance: alert, in no apparent distress - Head Head exam: Present: atraumatic, normocephalic - Eye Eye exam: Present: normal appearance. Absent: scleral icterus, conjunctival injection, periorbital swelling, periorbital tenderness - ENT ENT exam: Present: normal exam - Neck Neck exam: Present: normal inspection, full ROM. Absent: tenderness, lymphadenopathy - Respiratory Respiratory exam: Present: normal lung sounds bilaterally. Absent: respiratory distress, wheezes, rales, rhonchi, stridor, chest wall tenderness - Cardiovascular Cardiovascular Exam: Present: regular rate, normal heart sounds - GI/Abdominal GI/Abdominal exam: Present: soft, normal bowel sounds. Absent: distended, tenderness, guarding, rebound, rigid - Extremities Exam Extremities exam: Present: normal inspection, full ROM, tenderness (Calf and posterior thigh of right leg), normal capillary refill, calf tenderness. Absent: pedal edema, joint swelling - Back Exam Back exam: Present: normal inspection. Absent: CVA tenderness (R), CVA tenderness (L), vertebral tenderness - Neurological Exam Neurological exam: Present: alert, oriented X3, CN II-XII intact, normal gait - Psychiatric Psychiatric exam: Present: normal affect, normal mood - Skin Skin exam: Present: warm, dry, intact, normal color ED Course Vital Signs 12/07/21 12/07/21 09:43 16:06 Temperature 97.4 F L 98.6 F Pulse Rate 86 88 Respiratory 18 20 Rate Blood Pressure 128/82 132/78 [Left] O2 Sat by Pulse 99 98 Oximetry ED Medical Decision Making - Lab Data Result diagrams: 12/07/21 12:08 12/07/21 12:08 - Radiology Data Radiology results: report reviewed, image reviewed Venous doppler RLE: FINDINGS: RIGHT COMMON FEMORAL VEIN: Negative. RIGHT FEMORAL VEIN: Negative. RIGHT POPLITEAL VEIN: Negative. RIGHT CALF VEINS: Negative. ADDITIONAL FINDINGS: None. IMPRESSION: 1. No sonographic evidence for DVT in the right lower extremity. Venous doppler RUE: FINDINGS: RIGHT INTERNAL JUGULAR VEIN: Negative. RIGHT SUBCLAVIAN VEIN: Negative. RIGHT AXILLARY VEIN: Negative. RIGHT BRACHIAL VEIN: Negative. RIGHT FOREARM VEINS: Negative. RIGHT BASILIC VEIN (SUPERFICIAL): Negative. ADDITIONAL FINDINGS: None. IMPRESSION: 1. No sonographic evidence for DVT. - Medical Decision Making 26-year-old black female with a past medical history of asthma and anxiety pre sents to the emergency department for evaluation of 16-day history of right arm and leg pain and heaviness. She states that she has pain to the her posterior thigh and calf area and the back of her arm that is associated with some chest pain and abdominal discomfort. She states that pain is 10 out of 10 and has been persistent. She denies fever but states that she has had some shortness of breath and a nonproductive cough. She also endorses that she has had some pain to her right lower back and her right neck area along with intermittent numbness and tingling to her right toes and fingers. She states that she was seen at [facility] twice for same symptoms and the last time she was there, she was given a steroid shot that improved symptoms significantly for 2 days. Venous doppler negative for DVT to right arm and leg, labs without any gross abnormalities, and pain slightly improved after medications. Symptoms and physical exam most consistent with radicular pain. She states that she only has chest pain when gets anxious and she has been having multiple anxiety attacks per day. She will be d/marci home with steroids, flexeril, naprosyn, and klonopin and advised to follow up pcp for further evaluation and management. She is advised to return to ed as needed. She verbalized understanding of agreement with plan of care. Critical care attestation.: If time is entered above; I have spent that time in minutes in the direct care of this critically ill patient, excluding procedure time. ED Disposition Clinical Impression: Radicular pain, Anxiety Disposition: HOME / SELF CARE / HOMELESS Is pt being admited?: No Does the pt Need Aspirin: No Condition: Stable Instructions: Radicular Pain, Managing Anxiety, Adult, Abdominal Pain (ED) Additional Instructions: Take medications as prescribed. Follow-up with primary care provider if no improvement or worsening symptoms. Return to the emergency department as needed. Prescriptions: Cyclobenzaprine [Flexeril] 10 mg PO TID PRN #30 tab PRN Reason: Muscle Spasm clonazePAM [ Klonopin] 0.5 mg PO BID PRN #12 tab PRN Reason: Anxiety methylPREDNISolone [Medrol 4MG DOSEPAK (21 tabs)] 4 mg PO DAILY #1 pack Naproxen [Naprosyn] 500 mg PO BID PRN #14 tab PRN Reason: Pain, Moderate (4-6) Referrals: NEERU WOOD MD [Primary Care Provider] - 3-5 Days Forms: Work/School Release Form(ED) Time of Disposition: 16:00
[2021-12-07 12:47] LABS: Alanine Aminotransferase 14 units/L (7-56); Albumin 4.2 g/dL (3.9-5); Blood Urea Nitrogen 8 mg/dL (7-17); Calcium 9.9 mg/dL (8.4-10.2); Hemolysis Index 1
[2021-12-07 12:52] LABS: Hematocrit 28.8 % (30.3-42.9); Mean Corpuscular HGB Conc 31 % (30-34); Platelet Count 315 K/mm3 (140-440); Red Blood Count 4.65 M/mm3 (3.65-5.03)
[2021-12-07 12:56] LABS: Mean Corpuscular Volume 62 fl (79-97); Red Cell Distribution Width 22.5 % (13.2-15.2)
[2021-12-07 13:05] LABS: BUN/Creatinine Ratio 13
--- NOTE | 2021-12-07 13:57 | Vascular Lab Report ---
DUPLEX DOPPLER UPPER EXTREMITY VENOUS, RIGHT INDICATION / CLINICAL INFORMATION: pain. TECHNIQUE: Duplex doppler imaging was performed through the veins of the right upper extremity using venous comp ression and other maneuvers. COMPARISON: None available. FINDINGS: RIGHT INTERNAL JUGULAR VEIN: Negative. RIGHT SUBCLAVIAN VEIN: Negative. RIGHT AXILLARY VEIN: Negative. RIGHT BRACHIAL VEIN: Negative. RIGHT FOREARM VEINS: Negative. RIGHT BASILIC VEIN (SUPERFICIAL): Negative. ADDITIONAL FINDINGS: None. IMPRESSION: 1. No sonographic evidence for DVT. Signer Name: Seamus Kessler MD Signed: 12/07/2021 1:53 PM Workstation Name: [email or web address]
--- NOTE | 2021-12-07 13:58 | Vascular Lab Report ---
DUPLEX DOPPLER LOWER EXTREMITY VEINS, RIGHT INDICATION / CLINICAL INFORMATION: pain. TECHNIQUE: Duplex doppler imaging was performed through the veins of the right lower extremity using venous comp ression and other maneuvers. COMPARISON: None available. FINDINGS: RIGHT COMMON FEMORAL VEIN: Negative. RIGHT FEMORAL VEIN: Negative. RIGHT POPLITEAL VEIN: Negative. RIGHT CALF VEINS: Negative. ADDITIONAL FINDINGS: None. IMPRESSION: 1. No sonographic evidence for DVT in the right lower extremity. Signer Name: Seamus Kessler MD Signed: 12/07/2021 1:53 PM Workstation Name: [employer]
[2021-12-07 14:42] LABS: Basophils % (Manual) 0 % (0.0-1.8); Total Cells Counted 100
[2021-12-07 14:45] LABS: Anisocytosis 2+; Hypochromasia 2+; Large Platelets Rare; Platelet Estimate Consistent w Auto; Poikilocytosis Rare; Target Cells Rare
[2021-12-07 15:37] LABS: RBC,Urine > 182.0 /HPF (0.0-6.0)
[2021-12-07 15:38] LABS: Bilirubin,Urine Negative (Negative); Blood,Urine Large (Negative); Color,Urine Straw (Yellow); PH,Urine 6.5 (5.0-7.0); Protein,Urine <15 mg/dL mg/dL (Negative); Urobilinogen,Urine < 2.0 mg/dL (<2.0)
[2021-12-07 16:12] VITALS: BP 132/78
== END 2021-12-07 16:06 | disposition home or self-care (01) ==
LOC: ED 09:24
DX: M54.10 Radiculopathy, site unspecified (principal); F41.9 Anxiety disorder, unspecified; J45.909 Unspecified asthma, uncomplicated
CPT/HCPCS: 36415; 80053; 81001; 83690; 84484; 84703; 85007; 85025; 99284

== ENCOUNTER 2022-02-09 22:36 | Emergency (ER) | payer MEDICAID ==
[2022-02-10 00:21] LABS: Hematocrit 31.3 % (30.3-42.9); Hemoglobin 9.8 gm/dl (10.1-14.3); Mean Corpuscular HGB Conc 31 % (30-34); Platelet Count 343 K/mm3 (140-440); Red Blood Count 4.91 M/mm3 (3.65-5.03)
[2022-02-10 00:23] LABS: Mean Corpuscular Volume 64 fl (79-97); Red Cell Distribution Width 22.4 % (13.2-15.2)
--- NOTE | 2022-02-10 01:14 | XRay Report ---
ABDOMEN 2 VIEWS INDICATION / CLINICAL INFORMATION: Abdominal Pain. COMPARISON: None available. FINDINGS: TUBES / LINES: None. BOWEL GAS PATTERN: No significant abnormality. FREE AIR / EXTRALUMINAL GAS: None seen. ADDITIONAL FINDINGS: No significant additional findings. CHEST: Visualized chest shows no significant abnormality. IMPRESSION: 1. No acute findings. Signer Name: Landon Taylor MD Signed: 02/10/2022 1:10 AM Workstation Name: [id number]
[2022-02-10 01:57] LABS: Anisocytosis 1+; Basophils % (Manual) 0 % (0.0-1.8); Hypochromasia 2+; Total Cells Counted 100
[2022-02-10 01:58] LABS: Platelet Estimate Consistent w Auto
--- NOTE | 2022-02-10 02:10 | Cat Scan Report ---
CT HEAD WITHOUT CONTRAST INDICATION / CLINICAL INFORMATION: cote, dizziness, weakness, syncope. TECHNIQUE: All CT scans at this location are performed using CT dose reduction for ALARA by means of automated exposure control. COMPARISON: None available. FINDINGS: CEREBRAL/CEREBELLAR PARENCHYMA: The cerebral and cerebellar hemispheres are normal for age. No CT rubén dence for an acute or subacute territorial infarct. HEMORRHAGE: No acute intra-axial hemorrhage or extra-axial fluid collection. MASS: No mass or mass effect. VENTRICULAR SYSTEM: Normal in size and morphology for the patient's age. ORBITS: No acute process. SOFT TISSUES/SKULL: No scalp hematoma or skull fracture. PARANASAL SINUSES/MASTOID AIR CELLS: Normal as visualized. IMPRESSION: 1. No acute intracranial process. Signer Name: Landon Taylor MD Signed: 02/10/2022 2:06 AM Workstation Name: [id number]
[2022-02-10] MEDS ORDERED: HYDROcodone/ACETAMINOPHEN 5-325 MG TAB PO ONE ×2 (08:26→14:15)
[2022-02-10] MEDS ORDERED: ONDANSETRON 4 MG ODT TAB PO ONE (08:27)
[2022-02-10 09:05] LABS: Alanine Aminotransferase 10 units/L (7-56); Albumin 4.2 g/dL (3.9-5); Blood Urea Nitrogen 5 mg/dL (7-17); Calcium 9.6 mg/dL (8.4-10.2); Hemolysis Index 5
[2022-02-10 09:06] LABS: BUN/Creatinine Ratio 8
--- NOTE | 2022-02-10 10:01 | Emergency Department Report ---
ED General Adult HPI - General Chief complaint: Abdominal Pain Stated complaint: HEADACHE/NAUSEA Time Seen by Provider: 02/10/22 07:26 Source: EMS Mode of arrival: Ambulatory Limitations: No Limitations - History of Present Illness Initial comments: 26-year-old female with a history of gallstones reports to the ER with upper abdominal pain in the epigastric and right upper quadrant since yesterday along with a headache. Patient reports her pain is 9 out of 10. Patient reports nausea no diarrhea no vomiting. Patient reports some discomfort with eating. Patient denies fever. Patient reports no other acute signs and symptoms at this time. Severity scale (0 -10): 10 - Related Data Previous Rx's Medication Instructions Recorded Last Taken Type Azithromycin [Zithromax Z-JONE] 250 mg PO DAILY #6 tablet 04/26/16 Unknown Rx Cetirizine HCl [ZyrTEC] 10 mg PO DAILY #30 capsule 04/26/16 Unknown Rx Fluticasone [Flonase] 1 spray NS QDAY #1 bottle 04/26/16 Unknown Rx Ondansetron [Zofran Odt] 4 mg PO Q8HR PRN #10 tab.rapdis 12/08/18 Unknown Rx Promethazine HCl [Phenergan SUPPOS] 25 mg RC Q8H PRN 10 Days supp.rect 12/08/18 Unknown Rx Baclofen 20 mg PO Q12H PRN #24 tab 09/23/21 Unknown Rx Famotidine [Pepcid] 20 mg PO BID #60 tablet 09/23/21 Unknown Rx Ibuprofen [Motrin 800 MG tab] 800 mg PO Q8HR PRN #30 tablet 09/23/21 Unknown Rx Nystas/Diphen/Xyl Visc/Mylanta 15 ml PO Q8H PRN #450 ml 09/23/21 Unknown Rx [Magic Mouthwash] Naproxen [Naprosyn] 500 mg PO BID PRN #14 tab 12/07/21 Unknown Rx clonazePAM [ Klonopin] 0.5 mg PO BID PRN #12 tab 12/07/21 Unknown Rx methylPREDNISolone [Medrol 4MG 4 mg PO DAILY #1 pack 12/07/21 Unknown Rx DOSEPAK (21 tabs)] Acetaminophen/Codeine [Tylenol 1 tab PO Q6H PRN 2 Days #6 tab 02/10/22 Unknown Rx /Codeine # 3 tab] Cyclobenzaprine [Flexeril 10 MG 10 mg PO TID PRN #30 tab 02/10/22 Unknown Rx TAB] Ibuprofen [Motrin] 600 mg PO Q8H PRN 6 Days #18 tablet 02/10/22 Unknown Rx Allergies Allergy/AdvReac Type Severity Reaction Status Date / Time shellfish derived AdvReac Unknown Verified 12/07/21 09:45 ED Review of Systems ROS: Stated complaint: HEADACHE/NAUSEA Other details as noted in HPI Comment: All other systems reviewed and negative Gastrointestinal: abdominal pain, nausea. denies: vomiting, diarrhea ED Past Medical Hx - Past Medical History Previous Medical History?: Yes Hx Asthma: Yes Additional medical history: Anxiety, preeclampsia x 2 pregnacies, blood clots post - Social History Smoking Status: Unknown if ever smoked - Medications Home Medications: Home Medications Medication Instructions Recorded Confirmed Last Taken Type Azithromycin [Zithromax Z-JONE] 250 mg PO DAILY #6 tablet 04/26/16 Unknown Rx Cetirizine HCl [ZyrTEC] 10 mg PO DAILY #30 capsule 04/26/16 Unknown Rx Fluticasone [Flonase] 1 spray NS QDAY #1 bottle 04/26/16 Unknown Rx Ondansetron [Zofran Odt] 4 mg PO Q8HR PRN #10 tab.rapdis 12/08/18 Unknown Rx Promethazine HCl [Phenergan SUPPOS] 25 mg RC Q8H PRN 10 Days supp.rect 12/08/18 Unknown Rx Baclofen 20 mg PO Q12H PRN #24 tab 09/23/21 Unknown Rx Famotidine [Pepcid] 20 mg PO BID #60 tablet 09/23/21 Unknown Rx Ibuprofen [Motrin 800 MG tab] 800 mg PO Q8HR PRN #30 tablet 09/23/21 Unknown Rx Nystas/Diphen/Xyl Visc/Mylanta 15 ml PO Q8H PRN #450 ml 09/23/21 Unknown Rx [Magic Mouthwash] Naproxen [Naprosyn] 500 mg PO BID PRN #14 tab 12/07/21 Unknown Rx clonazePAM [ Klonopin] 0.5 mg PO BID PRN #12 tab 12/07/21 Unknown Rx methylPREDNISolone [Medrol 4MG 4 mg PO DAILY #1 pack 12/07/21 Unknown Rx DOSEPAK (21 tabs)] Acetaminophen/Codeine [Tylenol 1 tab PO Q6H PRN 2 Days #6 tab 02/10/22 Unknown Rx /Codeine # 3 tab] Cyclobenzaprine [Flexeril 10 MG 10 mg PO TID PRN #30 tab 02/10/22 Unknown Rx TAB] Ibuprofen [Motrin] 600 mg PO Q8H PRN 6 Days #18 tablet 02/10/22 Unknown Rx ED Physical Exam - General Limitations: No Limitations General appearance: alert, in no apparent distress - Head Head exam: Present: atraumatic, normocephalic - Eye Eye exam: Present: normal appearance - ENT ENT exam: Present: mucous membranes moist - Neck Neck exam: Present: normal inspection - Respiratory Respiratory exam: Present: normal lung sounds bilaterally. Absent: respiratory distress - Cardiovascular Cardiovascular Exam: Present: regular rate, normal rhythm. Absent: systolic murmur, diastolic murmur, rubs, gallop - GI/Abdominal GI/Abdominal exam: Present: soft, tenderness, normal bowel sounds. Absent: distended (Right upper quadrant and epigastric area with tenderness.), guarding, rebound, rigid - Extremities Exam Extremities exam: Present: normal inspection - Back Exam Back exam: Present: normal inspection - Neurological Exam Neurological exam: Present: alert, oriented X3 - Psychiatric Psychiatric exam: Present: normal affect, normal mood - Skin Skin exam: Present: warm, dry, intact, normal color. Absent: rash ED Course Vital Signs 02/09/22 02/09/22 02/10/22 23:09 23:21 14:50 Temperature 98.3 F 98.8 F 98.6 F Pulse Rate 84 88 68 Respiratory 18 18 18 Rate Blood Pressure 119/78 Blood Pressure 112/78 116/64 [Right] O2 Sat by Pulse 100 98 100 Oximetry ED Medical Decision Making - Lab Data Result diagrams: 02/09/22 23:53 02/10/22 08:34 - Radiology Data [facility] [address] [place] [address] Ultrasound Report Signed Patient: ANUPAMA PARKER MR# : [id number] : 1995 Acct:[id number] Age/Sex: 26 / F ADM Date: 02/09/22 Loc: ED Attending Dr: Ordering Physician: DEDE ROCK NP Date of Service: 02/10/22 Procedure(s): US abdomen limited Accession Number(s): [id number] cc: DEDE ROCK NP ULTRASOUND ABDOMEN, LIMITED (RIGHT UPPER QUADRANT) INDICATION: RUQ/Epigastric pain, hx of stones. COMPARISON: None available. FINDINGS: Pancreas: Visualized portion shows no significant abnormality. Liver: Normal in size, measuring 15.8 cm, with generalized increased echotexture. No suspicious liver lesions. Normal portal venous flow. Gallbladder: No significant abnormality. Sonographic Lee's sign: Not performed. Bile ducts: No significant abnormality. Common Bile Duct measures 3.6 mm. Free fluid: None. Additional Findings: None. IMPRESSION: 1. No acute findings to explain the patient's pain. 2. Probable hepatic steatosis. Signer Name: Bay Warren MD Signed: 02/10/2022 1:14 PM Workstation Name: [id number] Transcribed By: [place] Dictated By: Bay Warren MD Electronically Authenticated By: Bay Warren MD Signed Date/Time: 02/10/22 131 DD/ 131 TD/TT: [facility] [address] [place] [address] Cat Scan Report Signed Patient: ANUPAMA PARKER MR# : [id number] : 1995 Acct:[id number] Age/Sex: 26 / F ADM Date: 02/09/22 Loc: ED Attending Dr: Ordering Physician: POOJA RODARTE NP Date of Service: 02/10/22 Procedure(s): CT head/brain wo con Accession Number(s): [id number] cc: POOJA RODARTE NP CT HEAD WITHOUT CONTRAST INDICATION / CLINICAL INFORMATION: cote, dizziness, weakness, syncope. TECHNIQUE: All CT scans at this location are performed using CT dose reduction for ALARA by means of automated exposure control. COMPARISON: None available. FINDINGS: CEREBRAL/CEREBELLAR PARENCHYMA: The cerebral and cerebellar hemispheres are normal for age. No CT evidence for an acute or subacute territorial infarct. HEMORRHAGE: No acute intra-axial hemorrhage or extra-axial fluid collection. MASS: No mass or mass effect. VENTRICULAR SYSTEM: Normal in size and morphology for the patient's age. ORBITS: No acute process. SOFT TISSUES/SKULL: No scalp hematoma or skull fracture. PARANASAL SINUSES/MASTOID AIR CELLS: Normal as visualized. IMPRESSION: 1. No acute intracranial process. Signer Name: Michael Taylor MD Signed: 02/10/2022 2:06 AM Workstation Name: [id number] Transcribed By: Dictated By: MICHAEL TAYLOR MD Electronically Authenticated By: MICHAEL TAYLOR MD Signed Date/Time: 02/10/22205 DD/ 4 TD/TT: [facility] [address] [place] [address] XRay Report Signed Patient: ANUPAMA PARKER MR# : [id number] : 1995 Acct:[id number] Age/Sex: 26 / F ADM Date: 02/09/22 Loc: ED Attending Dr: Ordering Physician: ED MD ESTELITA Date of Service: 02/09/22 Procedure(s): XR abdomen 2V Accession Number(s): [id number] cc: ED MD ESTELITA Fluoro Time In Minutes: ABDOMEN 2 VIEWS INDICATION / CLINICAL INFORMATION: Abdominal Pain. COMPARISON: None available. FINDINGS: TUBES / LINES: None. BOWEL GAS PATTERN: No significant abnormality. FREE AIR / EXTRALUMINAL GAS: None seen. ADDITIONAL FINDINGS: No significant additional findings. CHEST: Visualized chest shows no significant abnormality. IMPRESSION: 1. No acute findings. Signer Name: Michael Taylor MD Signed: 02/10/2022 1:10 AM Workstation Name: [id number] Transcribed By: Dictated By: MICHAEL TAYLOR MD Electronically Authenticated By: MICHAEL TAYLOR MD Signed Date/Time: 02/10/22109 DD/ 8 TD/TT: - Medical Decision Making 26-year-old female with a history of gallstones reports to the ER with upper abdominal pain in the epigastric and right upper quadrant since yesterday along with a headache. Patient reports her pain is 9 out of 10. Patient reports nausea no diarrhea no vomiting. Patient reports some discomfort with eating. Patient denies fever. Patient reports no other acute signs and symptoms at this time. On physical exam patient has right upper quadrant tenderness negative Lee sign. Epigastric pain noted. No other acute clinical findings on physical exam. CBC CMP negative with no acute process with unremarkable results Lipase negative. UA with moderate leukocytes present Ultrasound negative with no acute stones or cholecystitis noted Patient informed that her labs and urine results as well as ultrasound results. Patient diagnosed with acute UTI and abdominal pain. Patient agrees with plan of care verbalized understanding. Patient informed if symptoms are to get worse to report back to the ER. Patient stable for discharge home no further work-up is needed. Vital Signs 02/09/22 02/09/22 02/10/22 23:09 23:21 14:50 Temperature 98.3 F 98.8 F 98.6 F Pulse Rate 84 88 68 Respiratory 18 18 18 Rate Blood Pressure 119/78 Blood Pressure 112/78 116/64 [Right] O2 Sat by Pulse 100 98 100 Oximetry Lab Results 02/09/22 02/09/22 02/10/22 Range/Units 23:53 23:53 08:34 WBC 8.7 (4.5-11.0) K/mm3 RBC 4.91 (3.65-5.03) M/mm3 Hgb 9.8 L (10.1-14.3) gm/dl Hct 31.3 (30.3-42.9) % MCV 64 L (79-97) fl MCH 20 L (28-32) pg MCHC 31 (30-34) % RDW 22.4 H (13.2-15.2) % Plt Count 343 (140-440) K/mm3 Add Manual Diff Complete Total Counted 100 Seg Neuts % (Manual) 42.0 (40.0-70.0) % Band Neutrophils % 0 % Lymphocytes % (Manual) 50.0 H (13.4-35.0) % Reactive Lymphs % (Man) 0 % Monocytes % (Manual) 4.0 (0.0-7.3) % Eosinophils % (Manual) 4.0 (0.0-4.3) % Basophils % (Manual) 0 (0.0-1.8) % Metamyelocytes % 0 % Myelocytes % 0 % Promyelocytes % 0 % Blast Cells % 0 % Nucleated RBC % Not Reportable Seg Neutrophils # Man 3.7 (1.8-7.7) K/mm3 Band Neutrophils # 0.0 K/mm3 Lymphocytes # (Manual) 4.4 (1.2-5.4) K/mm3 Abs React Lymphs (Man) 0.0 K/mm3 Monocytes # (Manual) 0.3 (0.0-0.8) K/mm3 Eosinophils # (Manual) 0.3 (0.0-0.4) K/mm3 Basophils # (Manual) 0.0 (0.0-0.1) K/mm3 Metamyelocytes # 0.0 K/mm3 Myelocytes # 0.0 K/mm3 Promyelocytes # 0.0 K/mm3 Blast Cells # 0.0 K/mm3 WBC Morphology Not Reportable Hypersegmented Neuts Not Reportable Hyposegmented Neuts Not Reportable Hypogranular Neuts Not Reportable Smudge Cells Not Reportable Toxic Granulation Not Reportable Toxic Vacuolation Not Reportable Dohle Bodies Not Reportable Pelger-Huet Anomaly Not Reportable Rabia Rods Not Reportable Platelet Estimate Consistent w auto Clumped Platelets Not Reportable Plt Clumps, EDTA Not Reportable Large Platelets Not Reportable Giant Platelets Not Reportable Platelet Satelliting Not Reportable Plt Morphology Comment Not Reportable RBC Morphology Not Reportable Dimorphic RBCs Not Reportable Polychromasia Not Reportable Hypochromasia 2+ Poikilocytosis Not Reportable Anisocytosis 1+ Microcytosis 2+ Macrocytosis Not Reportable Spherocytes Not Reportable Pappenheimer Bodies Not Reportable Sickle Cells Not Reportable Target Cells Not Reportable Tear Drop Cells Not Reportable Ovalocytes Not Reportable Helmet Cells Not Reportable Evangelista-[place] Bodies Not Reportable Papillion Rings Not Reportable Ballantine Cells Not Reportable Bite Cells Not Reportable Crenated Cell Not Reportable Elliptocytes Not Reportable Acanthocytes (Spur) Not Reportable Rouleaux Not Reportable Hemoglobin C Crystals Not Reportable Schistocytes Not Reportable Malaria parasites Not Reportable Willem Bodies Not Reportable Hem Pathologist Commnt No Sodium 138 (137-145) mmol/L Potassium 3.8 (3.6-5.0) mmol/L Chloride 103.0 (98-107) mmol/L Carbon Dioxide 26 (22-30) mmol/L Anion Gap 13 mmol/L BUN 5 L (7-17) mg/dL Creatinine 0.6 (0.6-1.2) mg/dL Estimated GFR > 60 ml/min BUN/Creatinine Ratio 8 % Glucose 90 (65-100) mg/dL Calcium 9.6 (8.4-10.2) mg/dL Total Bilirubin 0.20 (0.1-1.2) mg/dL AST 14 (5-40) units/L ALT 10 (7-56) units/L Alkaline Phosphatase 69 (35-129) units/L Total Protein 7.5 (6.3-8.2) g/dL Albumin 4.2 (3.9-5) g/dL Albumin/Globulin Ratio 1.3 % Lipase 21 (13-60) units/L HCG, Quant < 2.0 (0-4) mIU/mL Urine Color (Yellow) Urine Turbidity (Clear) Urine pH (5.0-7.0) Urine Protein (Negative) mg/dL Urine Glucose (UA) (Negative) mg/dL Urine Ketones (Negative) mg/dL Urine Blood (Negative) Urine Nitrite (Negative) Urine Bilirubin (Negative) Urine Urobilinogen (<2.0) mg/dL Ur Leukocyte Esterase (Negative) Urine WBC (Auto) (0.0-6.0) /HPF Urine RBC (Auto) (0.0-6.0) /HPF U Epithel Cells (Auto) (0-13.0) /HPF Urine Bacteria (Auto) (Negative) /HPF 02/10/22 Range/Units 10:39 WBC (4.5-11.0) K/mm3 RBC (3.65-5.03) M/mm3 Hgb (10.1-14.3) gm/dl Hct (30.3-42.9) % MCV (79-97) fl MCH (28-32) pg MCHC (30-34) % RDW (13.2-15.2) % Plt Count (140-440) K/mm3 Add Manual Diff Total Counted Seg Neuts % (Manual) (40.0-70.0) % Band Neutrophils % % Lymphocytes % (Manual) (13.4-35.0) % Reactive Lymphs % (Man) % Monocytes % (Manual) (0.0-7.3) % Eosinophils % (Manual) (0.0-4.3) % Basophils % (Manual) (0.0-1.8) % Metamyelocytes % % Myelocytes % % Promyelocytes % % Blast Cells % % Nucleated RBC % Seg Neutrophils # Man (1.8-7.7) K/mm3 Band Neutrophils # K/mm3 Lymphocytes # (Manual) (1.2-5.4) K/mm3 Abs React Lymphs (Man) K/mm3 Monocytes # (Manual) (0.0-0.8) K/mm3 Eosinophils # (Manual) (0.0-0.4) K/mm3 Basophils # (Manual) (0.0-0.1) K/mm3 Metamyelocytes # K/mm3 Myelocytes # K/mm3 Promyelocytes # K/mm3 Blast Cells # K/mm3 WBC Morphology Hypersegmented Neuts Hyposegmented Neuts Hypogranular Neuts Smudge Cells Toxic Granulation Toxic Vacuolation Dohle Bodies Pelger-Huet Anomaly Rabia Rods Platelet Estimate Clumped Platelets Plt Clumps, EDTA Large Platelets Giant Platelets Platelet Satelliting Plt Morphology Comment RBC Morphology Dimorphic RBCs Polychromasia Hypochromasia Poikilocytosis Anisocytosis Microcytosis Macrocytosis Spherocytes Pappenheimer Bodies Sickle Cells Target Cells Tear Drop Cells Ovalocytes Helmet Cells Evangelista-[place] Bodies Papillion Rings Lora Cells Bite Cells Crenated Cell Elliptocytes Acanthocytes (Spur) Rouleaux Hemoglobin C Crystals Schistocytes Malaria parasites Willem Bodies Hem Pathologist Commnt Sodium (137-145) mmol/L Potassium (3.6-5.0) mmol/L Chloride (98-107) mmol/L Carbon Dioxide (22-30) mmol/L Anion Gap mmol/L BUN (7-17) mg/dL Creatinine (0.6-1.2) mg/dL Estimated GFR ml/min BUN/Creatinine Ratio % Glucose (65-100) mg/dL Calcium (8.4-10.2) mg/dL Total Bilirubin (0.1-1.2) mg/dL AST (5-40) units/L ALT (7-56) units/L Alkaline Phosphatase (35-129) units/L Total Protein (6.3-8.2) g/dL Albumin (3.9-5) g/dL Albumin/Globulin Ratio % Lipase (13-60) units/L HCG, Quant (0-4) mIU/mL Urine Color Straw (Yellow) Urine Turbidity Clear (Clear) Urine pH 6.0 (5.0-7.0) Urine Protein <15 mg/dl (Negative) mg/dL Urine Glucose (UA) Neg (Negative) mg/dL Urine Ketones Neg (Negative) mg/dL Urine Blood 1.008 (Negative) Urine Nitrite Neg (Negative) Urine Bilirubin Neg (Negative) Urine Urobilinogen < 2 (<2.0) mg/dL Ur Leukocyte Esterase Mod (Negative) Urine WBC (Auto) 7.0 H (0.0-6.0) /HPF Urine RBC (Auto) 5.0 (0.0-6.0) /HPF U Epithel Cells (Auto) 3.0 (0-13.0) /HPF Urine Bacteria (Auto) 1+ (Negative) /HPF Critical care attestation.: If time is entered above; I have spent that time in minutes in the direct care of this critically ill patient, excluding procedure time. ED Disposition Clinical Impression: Upper abdominal pain Headache Qualifiers: Headache type: other headache syndrome Qualified Code(s): G44.89 - Other headache syndrome Disposition: 01 HOME / SELF CARE / HOMELESS Is pt being admited?: No Condition: Stable Instructions: Abdominal Pain, Adult, General Headache Without Cause, Abdominal Pain (ED) Prescriptions: Cyclobenzaprine [Flexeril 10 MG TAB] 10 mg PO TID PRN #30 tab PRN Reason: Muscle Spasm Ibuprofen [Motrin] 600 mg PO Q8H PRN 6 Days #18 tablet PRN Reason: Pain Acetaminophen/Codeine [Tylenol /Codeine # 3 tab] 1 tab PO Q6H PRN 2 Days #6 tab PRN Reason: pain Referrals: NEERU WOOD MD [Primary Care Provider] - 3-5 Days
[2022-02-10 10:52] LABS: Bilirubin,Urine NEG (Negative); Color,Urine Straw (Yellow); Protein,Urine <15 mg/dL mg/dL (Negative); Urobilinogen,Urine < 2 mg/dL (<2.0)
[2022-02-10 10:54] LABS: Bacteria,Urine 1+ /HPF (Negative)
[2022-02-10 11:05] LABS: Blood,Urine 1.008 (Negative)
--- NOTE | 2022-02-10 13:18 | Ultrasound Report ---
ULTRASOUND ABDOMEN, LIMITED (RIGHT UPPER QUADRANT) INDICATION: RUQ/Epigastric pain, hx of stones. COMPARISON: None available. FINDINGS: Pancreas: Visualized portion shows no significant abnormality. Liver: Normal in size, measuring 15.8 cm, with generalized increased echotexture. No suspicious liver lesions. Normal portal venous flow. Gallbladder: No significant abnormality. Sonographic Lee's sign: Not performed. Bile ducts: No significant abnormality. Common Bile Duct measures 3.6 mm. Free fluid: None. Additional Findings: None. IMPRESSION: 1. No acute findings to explain the patient's pain. 2. Probable hepatic steatosis. Signer Name: Bay Warren MD Signed: 02/10/2022 1:14 PM Workstation Name: [id number]
[2022-02-10 14:52] VITALS: BP 116/64
== END 2022-02-10 14:50 | disposition home or self-care (01) ==
LOC: ED 22:36
DX: Z91.013 Allergy to seafood (principal); J45.909 Unspecified asthma, uncomplicated; R10.9 Unspecified abdominal pain; R51.9 Headache, unspecified
CPT/HCPCS: 36415; 70450; 74019; 76705; 80053; 81001; 83690; 84702; 85007; 85025; 99284; J3490; Q0162